=== PATIENT | female | born 1975 | race Caucasian/White ===

== ENCOUNTER → 2018-11-10 | Outpatient (CLI) | payer BC, OTHER ==
--- NOTE | 2018-11-10 16:17 | WOMENS IMAGING REPORT ---
EXAM DESCRIPTION: 3D SCREENING MAMMO BILAT COMPLETED DATE/TIME: 11/10/2018 2:45 pm REASON FOR STUDY: Z12.31 ROUTINE 3D BILATERAL SCREENING Z12.31 ENCNTR SCREEN MAMMOGRAM FOR MALIGNAN T NEOPLASM OF ED COMPARISON: 06/10/2013 and 11/21/2008. TECHNIQUE: Standard craniocaudal and mediolateral oblique views of each breast recorded using digita l acquisition and breast tomosynthesis. LIMITATIONS: None. FINDINGS: No masses, calcifications or architectural distortion. No areas of suspicion. Read with the assistance of CAD. .[facility] - R2 Cenova Version 1.3 .[facility] - R2 Cenova Version 2.1 .[facility] - R2 Cenova Version 2.4 .[facility] - R2 Cenova Version 2.4 .[facility] - R2 Plan Coordinator Version 9.2 IMPRESSION: NORMAL MAMMOGRAM. BIRADS 1. BREAST DENSITY: c. The breasts are heterogeneously dense, which may obscure small masses. BIRAD: 1 NEGATIVE RECOMMENDATION: ROUTINE SCREENING COMMENT: The patient has been notified of the results by letter per SA requirements. Additional no tification policies are in place for contacting patient with suspicious or incomplete findings. Quality ID #[id number]: The [employer] recommends an annual screening mammogram for women aged 40 years or over. This facility utilizes a reminder system to ensure that all patients receive reminder letters, and/or direct phone calls for appointments. This includes reminders for routine scr eening mammograms, diagnostic mammograms, or other Breast Imaging Interventions when appropriate. Th is patient will be placed in the appropriate reminder system. The [employer] (ACR) has developed recommendations for screening MRI of the breast s in certain patient populations, to be used in conjunction with mammography. Breast MRI surveillanc e may be appropriate for women with more than 20% lifetime risk of developing breast cancer as deter mined by genetic testing, significant family history of the disease, or history of mantle radiation f or Hodgkins Disease. ACR Practice Guidelines 2008. DBT Technology DBT is a type of tomographic mammography. With conventional mammography, overlapping breast tissue ma y make lesions difficult to detect, even with good compression. DBT uses an x-ray tube that rotates a round the breast, taking images at different angles. These images are then combined to create thin sl ices of the breast that the radiologist can view as a 3D reconstruction. The [employer] unit can perform full-field digital mammograms (2D imaging); or DBT (3D imaging); or both, in a combination mode that quickly performs both the mammogram and the tomosynthesis scan while the breast is still compressed. PQRS 6045F: Fluoroscopic imaging is not utilized for breast tomosynthesis. TECHNICAL DOCUMENTATION: FINDING NUMBER: (1) ASSESSMENT: (1) JOB ID: [id number] [employer]- All Rights Reserved Reading location - IP/workstation name: [email or web address]
== END ==
LOC: WI 14:28
PROVIDERS: ATTEND Nurse Practitioner
DX: Z12.31 Encounter for screening mammogram for malignant neoplasm of breast (principal)
CPT/HCPCS: 77063; 77067

== ENCOUNTER 2018-11-12 12:23 | Emergency (ER) | payer OTHER ==
[2018-11-12] MEDS ORDERED: MORPHINE SULFATE 10 MG/ML INJ IV ONE (13:08)
--- NOTE | 2018-11-12 13:10 | ER Document Report ---
ED Medical Screen (RME) - General Chief Complaint: Dog Bite Stated Complaint: DOG BITE Time Seen by Provider: 11/12/18 13:06 Primary Care Provider: MARIMAR GARCIA MD [Primary Care Provider] - Follow up as needed Mode of Arrival: Ambulatory Information source: Patient Notes: Patient is a 43-year-old female who presents the emergency department with chief complaint of dog bite to her right hand. 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 The animals immunizations are up-to-date, the patient reports that she has had a rabies vaccine in the past. Animal control is at bedside. There is a large gaping open wound to the dorsal surface of her right hand between the first and second digits, there is moderate bleeding noted at this time. Patient is in significant pain. Clean dressing applied, orders for pain medication placed. I have greeted and performed a rapid initial assessment of this patient. A comp rehensive ED assessment and evaluation of the patient, analysis of test results and completion of the medical decision making process will be conducted by additional ED providers. Dictation of this chart was performed using voice recognition software; therefore, there may be some unintended grammatical errors. TRAVEL OUTSIDE OF THE [place] IN LAST 30 DAYS: No - Related Data Allergies/Adverse Reactions: No Known Allergies Allergy (Verified 11/12/18 12:24) Doctor's Discharge - Discharge Referrals: MARIMAR GARCIA MD [Primary Care Provider] - Follow up as needed
[2018-11-12] MEDS ORDERED: OXYCODONE-ACETAMINOPHEN 5-325 MG TABLET PO ONE (13:47)
--- NOTE | 2018-11-12 13:59 | RADIOLOGY REPORT (SQ) ---
EXAM DESCRIPTION: HAND RIGHT 3 VIEWS COMPLETED DATE/TIME: 11/12/2018 1:47 pm REASON FOR STUDY: dog bite, pain COMPARISON: None. EXAM PARAMETERS: NUMBER OF VIEWS: Three views. TECHNIQUE: AP, lateral and oblique radiographic images acquired of the right hand. LIMITATIONS: None. FINDINGS: MINERALIZATION: Normal. BONES: No acute fracture or dislocation. No worrisome bone lesions. JOINTS: No effusions. SOFT TISSUES: Soft tissue injury at the base of the thumb. No foreign body. OTHER: No other significant finding. IMPRESSION: SOFT TISSUE INJURY AT THE BASE OF THE THUMB. NO RADIOPAQUE FOREIGN BODY. NO BONY FINDI NGS. TECHNICAL DOCUMENTATION: JOB ID: [id number] [employer]- All Rights Reserved Reading location - IP/workstation name: [email or web address]
[2018-11-12 14:58] VITALS: BP 143/117
[2018-11-12] MEDS ORDERED: AMOXICILLIN TR/POT CLAVULANATE 500-125 MG TAB PO ONE (15:21)
[2018-11-12] MEDS ORDERED: HYDROMORPHONE HCL INJ/PF 2 MG/ML AMPULE IV ONE (15:30)
[2018-11-12] MEDS ORDERED: BACITRACIN ZINC OINTMENT 15 GM TP ONE (15:32)
--- NOTE | 2018-11-12 15:33 | ER Document Report ---
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 She has had a rabies vaccine and her tetanus is up-to-date. She complains of severe pain to the right hand at the base of the thumb despite already receiving morphine and oxycodone from triage. X-rays been done. She has no other major medical issues, denies numbness tingling and is able to lift her thumb up. TRAVEL OUTSIDE OF THE [place] IN LAST 30 DAYS: No - Related Data Allergies/Adverse Reactions: No Known Allergies Allergy (Verified 11/13/18 10:08) Past Medical History - General Information source: Patient - Social History Smoking Status: Never Smoker Chew tobacco use (# tins/day): No Frequency of alcohol use: None Drug Abuse: None Family History: None Patient has suicidal ideation: No Patient has homicidal ideation: No Renal/ Medical History: Denies: Hx Peritoneal Dialysis Review of Systems - Review of Systems Notes: REVIEW OF SYSTEMS GEN: Denies fever, chills, weight loss ENT: Denies sore throat, nasal discharge, ear pain EYES: Denies blurry vision, eye pain, discharge CV: Denies chest pain, palpitations, edema RESP: Denies cough, shortness of breath, wheezing GI: Denies abdominal pain, nausea, vomiting, diarrhea MSK: Hand pain SKIN: Denies rash, skin lesions LYMPH: Denies swollen glands/lymph nodes NEURO: Denies headache, focal weakness or numbness, dizziness PSYCH: Denies depression, suicidal or homicidal ideation PHYSICAL EXAMINATION General: No acute distress, well-nourished Head: Atraumatic, normocephalic ENT: Mouth normal, oropharynx moist, no exudates or tonsillar enlargement Eyes: Conjunctiva normal, pupils equal, lids normal Neck: No JVD, supple, no guarding CVS: Normal rate, regular rhythm, no murmurs Resp: No resp distress, equal and normal breath sounds bilaterally GI: Nondistended, soft, no tenderness to palpation, no rebound or guarding Ext: Right hand: There is a wound, with a skin flap distally shaped like a V which involves the base of the thumb dorsally the first dorsal webspace and the muscle. Initially there is no pulsatile bleeding but significant oozing. The patient is able to extend the thumb fully do not see any tendon in the wound but there is injury to the muscle belly. Back: No CVA or midline TTP Skin: No rash, warm Lymphatic: No lymphadeopathy noted Neuro: Awake, alert. Face symmetric. GCS 15. Sensation and strength in the right thumb. Physical Exam - Vital signs Vitals: Temp Pulse Resp BP Pulse Ox 98.8 F 124 H 25 H 143/117 H 100 11/12/18 12:57 11/12/18 12:57 11/12/18 12:57 11/12/18 12:57 11/12/18 12:57 Course - Re-evaluation Re-evalutation: 11/12/18 17:48 She presents with dog bite to the right hand. 11/16/18 16:07 Exam after sterile field was established laceration to a branch of the radial artery dorsally was observed to be pulsatile. This was ligated. Wound was then irrigated copiously and products were given and it was closed. Please see procedure note. It was closed loosely to account for dog bite and infection but needed to close given its location. Patient was then splinted. Patient was given multiple doses of pain medicine and asked to follow-up with a hand surgeon in at least 2 days. X-rays are negative. I have discussed with the patient there likely diagnosis, aftercare plan, follow-up plans and my usual and customary return precautions. They verbalized understanding of this. - Vital Signs Vital signs: Temp Pulse Resp BP Pulse Ox 98.8 F 124 H 25 H 143/117 H 100 11/12/18 12:57 11/12/18 12:57 11/12/18 12:57 11/12/18 12:57 11/12/18 12:57 Procedures - Immobilization Right Volar Wrist Pre-Proc Neuro Vasc Exam: Normal Immobilizer type: Short Arm Posterior Performed by: Provider assisted Alignment checked and good: Yes - Laceration/Wound Repair Right Posterior Hand Time completed: 14:00 Wound length (cm): 18 Wound's Depth, Shape: Into muscle, Irregular, Flap, Stellate, Other - Arterial laceration Laceration pre-procedure: Sterile PPE donned, Shur-Clens applied Anesthetic type: 1% Lidocaine Volume Anesthetic (mLs): 10 Wound explored: Clean Irrigated w/ Saline (mLs): 500 Wound Debrided: Moderate Wound Repaired With: Sutures Suture Size/Type: 4:0, Ethilon Number of Sutures: 8 Layer Closure?: Yes Deep Layer Suture Size/Type: 3:0, Chromic Number Deep Layer Sutures: 2 - 1 suture around the branch of the radial artery Post-procedure wound care: Sterile dressing applied, Splint applied Post-procedure NV exam normal: Yes Complications: No Notes: 11/16/18 16:10 Complex repair involving multiple layers as well as arterial ligation Discharge - Discharge Clinical Impression: Dog bite of right hand Qualifiers: Encounter type: initial encounter Qualified Code(s): S61.451A - Open bite of right hand, initial encounter Condition: Good Disposition: HOME, SELF-CARE Instructions: Animal Bites ([facility]), Hand Laceration ([facility]), Splint Precautions ([facility]) Additional Instructions: Your bite wound has a very high infection risk despite having it cleaned out and being on antibiotics so if you develop worsening pain, drainage pus redness or fever you need to return to the emergency room immediately. We closed the wound loosely to allow for drainage which is normal. Please take antibiotics exactly as prescribed, pain medicine as needed, and elevate the extremity. Prescriptions: Amox Tr/Potassium Clavulanate [Augmentin 875-125 Tablet] 1 tab PO BID 10 Days tablet Oxycodone HCl/Acetaminophen [Percocet 5-325 mg Tablet] 1 - 2 tab PO Q4H PRN #15 tablet PRN Reason: Referrals: MARIMAR GARCIA MD [COMMUNITY BASED STAFF] - Follow up as needed KIMBERLY NIXON MD [ACTIVE STAFF] - Follow up as needed
[2018-11-12] MEDS ORDERED: LIDOCAINE 1% INJ-PF (10 MG/ML) 30 ML SDV ONE (15:34)
== END 2018-11-12 17:43 | disposition home or self-care (01) ==
LOC: ER 12:23
PROC: 0HQFXZZ Repair Right Hand Skin, External Approach (ICD-10-PCS; principal; 2018-11-12)
DX: S61.451A Open bite of right hand, initial encounter (principal); W54.0XXA Bitten by dog, initial encounter; Z79.899 Other long term (current) drug therapy
CPT/HCPCS: 99283; 96374; 96375; 73130; 12005; J2270; J1170; J3490

== ENCOUNTER 2018-11-13 10:05 | Emergency (ER) | payer OTHER ==
--- NOTE | 2018-11-13 10:21 | ER Document Report ---
ED Medical Screen (RME) - General Chief Complaint: Dog Bite Stated Complaint: DOG BITE Time Seen by Provider: 11/13/18 10:16 Primary Care Provider: COURTNEY MURPHY FNP [Primary Care Provider] - Follow up as needed Mode of Arrival: Ambulatory Information source: Patient Notes: Patient is a 43-year-old female who returns to the emergency department after being seen yesterday for a dog bite to her right hand. Patient was put on Augmentin and Percocet and the wound was loosely sutured. The patient reports pain is out of control, states Percocet is not helping at all. Patient reports he gave her IV Dilaudid yesterday and states that is the only thing that helped. Exam: Mild swelling noted to patient's fingertips, cap refill less than 3 seconds, normal sensation distal to complete. Large dressing and splint covering wound. I have greeted and performed a rapid initial assessment of this patient. A comprehensive ED assessment and evaluation of the patient, analysis of test results and completion of the medical decision making process will be conducted by additional ED providers. Dictation of this chart was performed using voice recognition software; therefore, there may be some unintended grammatical errors. TRAVEL OUTSIDE OF THE [place] IN LAST 30 DAYS: No - Related Data Allergies/Adverse Reactions: No Known Allergies Allergy (Verified 11/13/18 10:08) Past Medical History Renal/ Medical History: Denies: Hx Peritoneal Dialysis Physical Exam - Vital signs Vitals: Temp Pulse Resp BP Pulse Ox 98.2 F 70 15 123/66 100 11/13/18 10:11 11/13/18 10:11 11/13/18 10:11 11/13/18 10:11 11/13/18 10:11 Course - Vital Signs Vital signs: Temp Pulse Resp BP Pulse Ox 98.2 F 70 15 123/66 100 11/13/18 10:11 11/13/18 10:11 11/13/18 10:11 11/13/18 10:11 11/13/18 10:11 Doctor's Discharge - Discharge Referrals: COURTNEY MURPHY FNP [Primary Care Provider] - Follow up as needed
[2018-11-13] MEDS ORDERED: KETOROLAC TROMETHAMINE INJ/PF 30 MG/1 ML SDV IV ONE (10:42)
[2018-11-13] MEDS ORDERED: ONDANSETRON HCL INJ/PF 4 MG/2 ML SDV IV ONE (10:42)
[2018-11-13] MEDS ORDERED: HYDROMORPHONE HCL INJ/PF 2 MG/ML AMPULE IV ONE (10:42)
--- NOTE | 2018-11-13 12:42 | ER Document Report ---
Addendum entered and electronically signed by NASEEM MATHIS PA-C 11/13/18 12:58: Course - Re-evaluation Re-evalutation: 11/13/18 12:58 I look patient up on the [facility] aware line and she does not show any type of indication for being a narcotic seeking her doctor shopping person. I did addiction treatment counselor patient about the adverse effects of the drugs had about the addiction possibilities to any kind of narcotic. - Vital Signs Vital signs: Temp Pulse Resp BP Pulse Ox 98.2 F 70 15 123/66 100 11/13/18 10:11 11/13/18 10:11 11/13/18 10:11 11/13/18 10:11 11/13/18 10:11 Original Note: ED Wound - General Chief Complaint: Dog Bite Stated Complaint: DOG BITE Time Seen by Provider: 11/13/18 10:16 Primary Care Provider: COURTNEY MURPHY FNP [Primary Care Provider] - Follow up as needed Mode of Arrival: Ambulatory Information source: Patient, Relative Notes: Patient is a 43-year-old female who returns to the emergency room from yesterday visit with a complaint of a dog bite to the left hand. Patient was seen here yesterday x-rays were negative for any bone involvement however there is a large 9 cm laceration between patient's left thumb and index finger into the webbing of the hand and into the soft tissue area dorsum and thenar prominence of the left hand. Her primary complaint for being here today is that that she cannot stand the pain. The states she was unable to sleep last night secondary to pain and that it is getting worse. She states that the Percocet is like taking water it does nothing for the discomfort or pain. They are here to get reevaluated and get something for pain. TRAVEL OUTSIDE OF THE [place] IN LAST 30 DAYS: No - HPI Patient complains to provider of: Puncture wound - After performing a Medical Screening Examination, I estimate there is LOW risk for a RETAINED CORNEAL or LID FOREIGN BODY, DEEP SPACE INFECTION (e.g., ORBITAL CELLULITIS OR ABSCESS), ACUTE GLAUCOMA, PENETRATING GLOBE INJURY, RETINAL DETACHMENT, or MENINGITIS thus I consider the discharge disposition reasonable. I have reevaluated this patient multiple times and no significant life threatening changes are noted. Also, there is no evidence or peritonitis, sepsis, or toxicity. The patient and I have discussed the diagnosis and risks, and we agree with discharging home with outpatient follow-up with the understanding that symptoms and presentations can change. We also discussed returning to the Emergency Department immediately if new or worsening symptoms occur. We have discussed the symptoms which are most concerning (e.g., changing or worsening pain, vision changes, neck stiffness or fever) that necessitate immediate return. Occurred: Yesterday Onset/Duration: Sudden Quality of pain: Achy, Sharp, Stabbing Severity: Severe Pain Level: 5 Context: Injury, Spontaneous Skin Temperature: Warm Skin Color: Pale, Flushed Capillary refill: < 3 seconds Sensations intact: Yes Distal pulses present: Yes Associated Symptoms: Redness - Related Data Allergies/Adverse Reactions: No Known Allergies Allergy (Verified 11/13/18 10:08) Past Medical History - General Information source: Patient - Social History Smoking Status: Unknown if Ever Smoked Cigarette use (# per day): No Chew tobacco use (# tins/day): No Smoking Education Provided: No Frequency of alcohol use: None Drug Abuse: None Family History: Reviewed & Not Pertinent Patient has suicidal ideation: No Patient has homicidal ideation: No - Medical History Medical History: Negative Renal/ Medical History: Denies: Hx Peritoneal Dialysis Review of Systems - Review of Systems Constitutional: No symptoms reported EENT: No symptoms reported Cardiovascular: No symptoms reported Respiratory: No symptoms reported Gastrointestinal: No symptoms reported Genitourinary: No symptoms reported Female Genitourinary: No symptoms reported Musculoskeletal: See HPI Skin: See HPI Hematologic/Lymphatic: No symptoms reported Neurological/Psychological: No symptoms reported -: Yes All other systems reviewed and negative Physical Exam - Vital signs Vitals: Temp Pulse Resp BP Pulse Ox 98.2 F 70 15 123/66 100 11/13/18 10:11 11/13/18 10:11 11/13/18 10:11 11/13/18 10:11 11/13/18 10:11 Interpretation: Normal - Notes Notes: PHYSICAL EXAMINATION: GENERAL: patient is a 45-year-old well-nourished well-developed female who is in no apparent distress although she is in noticeable and some concerning pain and discomfort. HEAD: Atraumatic, normocephalic. EYES: Pupils equal round and reactive to light, extraocular movements intact, conjunctiva are normal. ENT: Nares patent, oropharynx clear without exudates. Moist mucous membranes. NECK: Normal range of motion, supple without lymphadenopathy LUNGS: Breath sounds clear to auscultation bilaterally and equal. No wheezes rales or rhonchi. HEART: Regular rate and rhythm without murmurs ABDOMEN: Soft, nontender, nondistended abdomen. No guarding, no rebound. No masses appreciated. Female : deferred Musculoskeletal: Examination patient's area of concern is her left hand. Primarily between the index finger and thumb. Patient has a 9 cm mouth bite that encompasses the web spacing of the first and second digits of the left hand and the bottom teeth of the dog extend into the thenar prominence and the palm of the left hand. There are 9 sutures on top of the dorsum of the hand. And again it area there measures 9 cm that is loosely associated. Patient has good cap refill in the nailbeds of the left fingers. He has no movement of the thumb secondary to pain and swelling. She has limited motion of the index finger secondary to pain and swelling. Patient cannot flex or extend her left index finger she can barely move her left thumb. The area around the wound appears to be healing okay there is no discharge noted at this time. There is discoloration in that area and around the bite cameron totally, NEUROLOGICAL: Normal speech, normal gait. Normal sensory, motor exams PSYCH: Normal mood, normal affect. SKIN: Warm, Dry, normal turgor, no rashes or lesions noted. Course - Re-evaluation Re-evalutation: 11/13/18 12:42 We unwrap patient's wound and she has been wearing Covan to keep on a tight dressing and a splint. At this first examination of her taken off the [place] it did appear that may be that she is having some restriction and possibly the causing swelling that causing him more discomfort and pain. After removing that given her a shot of the Dilaudid and a shot of Toradol patient was feeling much better. I have agreed after talking to Dr. Norris to write for 9 pills that she is already taking in order to replace throughout the weekend until she sees orthopedic on Friday. She has an 815 appointment with orthopedist Friday. - Vital Signs Vital signs: Temp Pulse Resp BP Pulse Ox 98.2 F 70 15 123/66 100 11/13/18 10:11 11/13/18 10:11 11/13/18 10:11 11/13/18 10:11 11/13/18 10:11 Discharge - Discharge Clinical Impression: Dog bite of left hand Qualifiers: Encounter type: subsequent encounter Qualified Code(s): S61.452D - Open bite of left hand, subsequent encounter Condition: Good Disposition: HOME, SELF-CARE Instructions: Animal Bites ([facility]) Additional Instructions: As we discussed it can take time for this to get really bearable. And you have an appointment with orthopedist on Friday. I am going to re-write you for some of the Percocet I discussed this with Dr. Norris my attending he agrees agreed to this. Sling and elevate as much as possible and ice it down at least 2-3 times a day as we discussed. Should you have any concerns over the weekend return to ER for recheck. Prescriptions: Ibuprofen [Motrin 800 mg Tablet] 800 mg PO Q8H #30 tab Oxycodone HCl/Acetaminophen [Percocet 5-325 mg Tablet] 1 - 2 tab PO Q4H PRN #10 tablet PRN Reason: Referrals: COURTNEY MURPHY FNP [Primary Care Provider] - Follow up as needed
[2018-11-13 13:07] VITALS: BP 106/64
== END 2018-11-13 13:07 | disposition home or self-care (01) ==
LOC: ER 10:05
DX: S61.452D Open bite of left hand, subsequent encounter (principal); W54.0XXD Bitten by dog, subsequent encounter
CPT/HCPCS: 99282; 96374; 96375; J1885; J1170; J2405

== ENCOUNTER 2018-11-20 12:22 | Emergency (ER) | payer OTHER ==
--- NOTE | 2018-11-20 13:58 | ER Document Report ---
HPI - HPI Patient complains to provider of: Medication refill Time Seen by Provider: 11/20/18 13:45 Onset: Last week Onset/Duration: Gradual Pain Level: 4 Context: Patient presents requesting a refill of narcotic pain medication. Patient was bit by a dog 8 days ago and had sutures placed. Patient was seen again 2 days later as she needed additional pain medication. Patient did see the hand surgeon for days ago and was placed on gabapentin and Zofran. Patient does not like the way the gabapentin makes her drowsy. Patient states she does want to work and that she can work while taking the Percocet does not with the gabapentin. Associated Symptoms: Other - Right hand pain. denies: Fever Exacerbated by: Movement Relieved by: Denies Similar symptoms previously: Yes Recently seen / treated by doctor: Yes - ROS ROS below otherwise negative: Yes Systems Reviewed and Negative: Yes All other systems reviewed and negative - CONSTITUTIONAL Constitutional: DENIES: Fever, Chills - GASTROINTESTINAL Gastrointestinal: DENIES: Nausea - REPRODUCTIVE Reproductive: DENIES: : - MUSCULOSKELETAL Musculoskeletal: REPORTS: Extremity pain - DERM Skin Color: Normal Skin Problems: Laceration Past Medical History - General Information source: Patient - Social History Smoking Status: Never Smoker Frequency of alcohol use: None Drug Abuse: None Occupation: Veterinary office Family History: Reviewed & Not Pertinent - Medical History Medical History: Negative Renal/ Medical History: Denies: Hx Peritoneal Dialysis Surgical Hx: Negative Vertical Provider Document - CONSTITUTIONAL Agree With Documented VS: Yes Exam Limitations: No Limitations General Appearance: WD/WN, No Apparent Distress - INFECTION CONTROL TRAVEL OUTSIDE OF THE [place] IN LAST 30 DAYS: No - HEENT HEENT: Atraumatic, Normocephalic - NECK Neck: Normal Inspection - RESPIRATORY Respiratory: No Respiratory Distress - CARDIOVASCULAR Pulses: Normal: Radial - MUSCULOSKELETAL/EXTREMETIES Musculoskeletal/Extremeties: Tender - Right hand tenderness to dorsal aspect of right thumb and to webspace between right first and second fingers, wound edges approximated, no surrounding erythema, no purulent drainage. Tenderness with extension of the right thumb. Notes: Thumb able to be moved through passive range of motion with tenderness. - NEURO Level of Consciousness: Awake, Alert, Appropriate - DERM Integumentary: Warm, Dry, Laceration - Sutured laceration with intact sutures, no surrounding erythema, no purulent drainage. Course - Re-evaluation Re-evalutation: 11/20/18 13:56 Call placed for consultation with orthopedics, message left for Dr. Chase to return phone call. 11/20/18 14:34 Technical Solutions Engineer attempted to contact Dr. Chase again. Technical Solutions Engineer states that she is not had any success and has been attempting to get up with him since 130 for another provider. Technical Solutions Engineer contacted Dr. Cadet as this is his patient. Consulted with Dr. Cadet regarding patient presentation. Does not recommend refilling Percocet. - Vital Signs Vital signs: Temp Pulse Resp BP Pulse Ox 98.6 F 89 16 138/66 H 100 11/20/18 12:28 11/20/18 12:28 11/20/18 12:28 11/20/18 12:28 11/20/18 12:28 Discharge - Discharge Clinical Impression: Dog bite Qualifiers: Encounter type: initial encounter Qualified Code(s): W54.0XXA - Bitten by dog, initial encounter Hand pain Qualifiers: Laterality: right Qualified Code(s): M79.641 - Pain in right hand Condition: Stable Disposition: HOME, SELF-CARE Instructions: Animal Bites ([facility]) Additional Instructions: Return immediately for any new or worsening symptoms Follow-up with orthopedics as planned. Call their office on Friday to see if you can get an appointment sooner if needed. Take your gabapentin and Motrin that you have as prescribed. Forms: Return to Work Referrals: COURTNEY MURPHY FNP [Primary Care Provider] - Follow up as needed JENNIE CADET DO [ACTIVE STAFF] - 11/24/18
[2018-11-20 14:43] VITALS: BP 134/78
== END 2018-11-20 14:45 | disposition home or self-care (01) ==
LOC: ER 12:22
DX: M79.641 Pain in right hand (principal); W54.0XXD Bitten by dog, subsequent encounter
CPT/HCPCS: 99281